=== PATIENT | female | born 1980 | race Caucasian/White ===

== ENCOUNTER 2019-07-21 15:22 | Emergency (ER) | payer SELFPAY ==
[2019-07-21] MEDS ORDERED: Ibuprofen TAB* 400 MG PO ONE (15:34)
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
[2019-07-21 17:55] VITALS: BP 110/67
== END 2019-07-21 17:53 | disposition home or self-care (01) ==
LOC: EDBD → ED 15:22
DX: S20.02XA Contusion of left breast, initial encounter (principal); S89.91XA Unspecified injury of right lower leg, initial encounter; V49.9XXA Car occupant (driver) (passenger) injured in unspecified traffic accident, initial encounter; Y92.410 Unspecified street and highway as the place of occurrence of the external cause; Z88.8 Allergy status to other drugs, medicaments and biological substances
CPT/HCPCS: 71046; 99282; A9270-GY